=== PATIENT | female | born 1950 | race African-American/Black ===

== ENCOUNTER 2018-05-19 07:06 | Inpatient (IN) | payer MEDICARE, MEDICAID ==
[~2018-05-19] VITALS: Ht 157.5 cm; Wt 72.6 kg
--- NOTE | 2018-05-19 08:50 | NUR ---
NURSE NOTES: Received report from LEODAN Medina. Patient direct admit from [facility], came in for left side weakness and r/o stroke. No known allergies, AOx4.
--- NOTE | 2018-05-19 09:34 | NUR ---
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 VS at the time of arrival BP 151/84, HR 75, RR 18, O2 sat 98%, T 98.3, denies pain at this time. Patient able to move left hand, strength 2/5, able to move left leg 2/5. IV on left wrist 20G, Right FA 20G asymptomatic, patent, intact. Got reported that no medication given at [facility]. Bed in lowest position, side rails upx2, call light within reach. Will continue to monitor.
[2018-05-19 09:40] VITALS: BP 151/84
[2018-05-19 12:00] VITALS: BP 149/79
--- NOTE | 2018-05-19 12:00 | NUR ---
NURSE NOTES: Awaiting for patient to be in the system. Awaiting for Dr. Mcginnis for admission orders.
--- NOTE | 2018-05-19 14:00 | NUR ---
NURSE NOTES: Dr. Mcginnis at the station, admission orders noted, acknowledged, carried out. Will continue to monitor.
[2018-05-19] MEDS ORDERED: Nitroglycerin Subl 0.4mg tab SL PRN (14:15)
[2018-05-19] MEDS ORDERED: Miralax 17gm pkt ORAL PRN (14:15)
[2018-05-19] MEDS ORDERED: HydrALAZINE 50mg tab ORAL PRN (14:15)
--- NOTE | 2018-05-19 14:22 | History & Physical ---
History and Physical History & Physicial Liang Mcginnis MD May 19, 2018 14:22
[2018-05-19] MEDS ORDERED: Metoprolol 25mg tab ORAL SCH (14:30)
[2018-05-19] MEDS: Aspirin EC 81mg tab ORAL SCH (15:17)
--- NOTE | 2018-05-19 17:40 | Cardiology Progress Note ---
Assessment/Plan Assessment/Plan The patient is seen and examined, full consult note will be dictated shortly. Objective Last 24 Hour Vital Signs Date Time Temp Pulse Resp B/P (MAP) Pulse Ox O2 Delivery O2 Flow Rate FiO2 05/19/18 15:18 80 149/80 05/19/18 12:33 Room Air 05/19/18 12:00 98.1 82 18 149/79 (102) 97 05/19/18 09:40 85 05/19/18 09:40 98.3 75 18 151/84 (106) 98 Laboratory Tests Test 05/19/18 14:28 Troponin I 0.040 ng/mL (0.000-0.056) Wang De León MD May 19, 2018 17:40
--- NOTE | 2018-05-19 18:00 | History and Physical Report ---
DATE OF ADMISSION: 05/19/2018 CHIEF COMPLAINT: Left-sided weakness. HISTORY OF PRESENT ILLNESS: This is a 67-year-old female, denies any past medical history, except history of tubal ligation, who has presented initially to [facility] ER complaining about weakness mostly in the left upper extremity and lower extremity that started around 5 p.m. She was trying to go to the bathroom and fell and she had to use her chair to try to get her balance. She was on the floor for 5 hours. Subsequently, EMS was called in and the patient was transferred to the [facility]. Shortly after initial evaluation in the ER, the patient was worked up for acute stroke. A CT stroke was done at the ER that showed the mild white matter ischemic disease, but no acute intracranial pathology was identified and mild aortic atherosclerosis. The patient had a CT of the brain showed that unsure of the true improvement. Subsequently, CT stroke was done of the brain with CTA of the brain and neck showed that the posterior foci is unremarkable. The suprasellar cistern is within normal limits. Supratentorially, there is no mass, lesion, or midline shift. There is no hydronephrosis, acute intra intracranial hemorrhage, or extra axial air-fluid collection. Area of the white matter ischemic disease are suggested. CT angio of the brain also confirmed the mild white matter ischemic changes, but no acute intracranial pathology was identified. Mild aortic atherosclerosis identified. Subsequently, the patient was transferred to the [facility] for further evaluation and workup. The patient was admitted to the monitored unit for acute stroke with left-sided weakness. PAST MEDICAL HISTORY/PAST SURGICAL HISTORY: Significant for tubal ligation. MEDICATIONS AT HOME: None. ALLERGIES: No known drug allergies. SOCIAL HISTORY: The patient has smoked half a pack of cigarettes for 40 years pack smoker. Denies any alcohol or substance abuse. She is a caregiver. FAMILY HISTORY: Sister has a breast cancer and CVA at age of 70 and father has a history of lung cancer. REVIEW OF SYSTEMS: Denies any fever or chills. Complained about weakness and fatigue. Denies any cough or shortness of breath. Denies any loss of consciousness. Denies any headache. Denies any double vision. Denies any suicidal or homicidal ideation. PHYSICAL EXAMINATION: VITAL SIGNS: Upon arrival to [facility], blood pressure 170/110, pulse of 84, respirations 18, and temperature 98.2. GENERAL: The patient is awake, responsive, and in no acute. HEAD AND NECK: Pupils are reactive to light. Extraocular movements intact. Neck was supple. No JVD. LUNGS: Good air entry. No wheezing or rales. HEART: Reveals S1 and S2. Regular rhythm. No gallops. ABDOMEN: Soft, nondistended, and nontender. Positive bowel sounds. EXTREMITIES: No cyanosis, clubbing, or edema. NEUROLOGIC: SUPERVISOR OF OFFICIALS II through XII grossly intact. Motor is 5/5 in all extremities on the right side. On the left side is 3/5 on the upper as well as lower extremity. CRANIAL NERVE EXAMINATION: The gag is positive and the extra motor intact. No nystagmus. RECTAL/GENITOURINARY: Refused and deferred. PSYCHIATRIC: Mood and affect is intact. LABORATORY DATA: Laboratory from the [facility], WBC of 9.6, hemoglobin of 14, hematocrit 45, and platelets is 318,000. Sodium 140, potassium 3.8, chloride 109, bicarbonate 24, BUN is 8, and creatinine is 0.83. GFR is 85. INR is 1.0. Troponin 0.04. CK is 171. Calcium is 9.2. level is less than 0.10. EKG was noted. Initial EKG at the [facility] was noted normal sinus rhythm, ventricular rate of 94, left atrial enlargement. No ST elevation or T-wave inversion was identified. Repeat EKG at the [facility], normal sinus rhythm, ventricular rate of 72, left atrial enlargement, rightward axis inverted T-wave in V5 and V6, as well as flattening of T-wave in leads 1 and aVF. ASSESSMENT: 1. Left-sided weakness, most likely secondary to acute CVA. 2. Mild elevation of troponin with abnormal EKG, possible acute coronary syndrome. 3. Chronic smoker. 4. . PLAN: Admit the patient to monitor unit. We will follow up with the echocardiogram, serial cardiac enzyme and EKG. Start the patient on aspirin as well as Lipitor. We will discuss the case with Dr. Cesar Ramirez from Neurology and Dr. Wang De León from Cardiology. Discussed with the family member, the patient, as well as daughter at the bedside extensively regarding plan of care. Code status, Full Code. DVT prophylaxis with heparin subcutaneous. Liang Mcginnis M.D. DR: DU JOB#: [id number] CC:
--- NOTE | 2018-05-19 18:41 | Consultation ---
History of Present Illness General Date patient seen: May 19, 2018 Time patient seen: 19:00 Chief Complaint: LUE weakness Referring physician: Dr. Liang Mcginnis Reason for Consultation: CVA from OSH Present Illness HPI This is a 67-year-old female, denies any past medical history, except history of tubal ligation, who has presented initially to [facility] ER complaining about weakness mostly in the left upper extremity and lower extremity that started around 5 p.m. She was trying to go to the bathroom and fell and she had to use her chair to try to get her balance. She was on the floor for 5 hours. EMS was called in and the patient was transferred to the [facility]. Shortly after initial evaluation in the ER, the patient was worked up for acute stroke. A CT BRAIN was done at the ER that showed the mild white matter ischemic disease, but no acute intracranial pathology was identified and mild aortic atherosclerosis. CT angio of the brain also confirmed the mild white matter ischemic changes, but no acute intracranial pathology was identified. Mild aortic atherosclerosis identified. Since then, the patient has been transferred to [facility] for further evaluation and workup. The patient was admitted to the monitored unit for acute stroke with left-sided weakness. She is alert and oriented at the time of our consultation today. She is reporting LUE weakness and complaining of some right leg pain. Allergies: Coded Allergies: NO KNOWN ALLERGIES (Verified Allergy, Unknown, 05/19/18) Patient History History Provided By: Patient Healthcare decision maker Rosy Matias Resuscitation status Full Code Advanced Directive on File Past Medical/Surgical History Past Medical/Surgical History: (1) Cigarette smoker Review of Systems Constitutional: Reports: weakness Musculoskeletal: Reports: muscle pain, other - Reporting right leg pain and swelling Skin: Reports: no symptoms Psychiatric: Reports: no symptoms Neurological: Reports: focal weakness - LUE 3/5 and LLE 4/5 with mild facial weakness that improves upon smile . 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, alert, oriented x 3, responsive, normal mood/affect, motor weakness - LUE 3/5, worst at proximal- mild 4/5 weakness of LLE - RLE/RUE 5/5 Musculoskeletal: normal muscle bulk Last 24 Hour Vital Signs Date Time Temp Pulse Resp B/P (MAP) Pulse Ox O2 Delivery O2 Flow Rate FiO2 05/19/18 15:18 80 149/80 05/19/18 12:33 Room Air 05/19/18 12:00 98.1 82 18 149/79 (102) 97 05/19/18 09:40 85 05/19/18 09:40 98.3 75 18 151/84 (106) 98 Laboratory Tests Test 05/19/18 14:28 Troponin I 0.040 ng/mL (0.000-0.056) Height (Feet): 5 Height (Inches): 2.00 Weight (Pounds): 160 Medications Current Medications Medications (Trade) Dose Ordered Sig/Bryan Route PRN Reason Start Time Stop Time Status Last Admin Dose Admin Acetaminophen (Tylenol) 650 mg Q4H PRN ORAL Mild Pain (Pain Scale 1-3) 05/19/18 14:15 06/18/18 14:14 Amlodipine Besylate (Norvasc) 2.5 mg DAILY ORAL 05/19/18 18:00 06/18/18 17:59 Aspirin (Ecotrin) 81 mg DAILY ORAL 05/19/18 14:30 06/18/18 14:29 05/19/18 15:17 Atorvastatin Calcium (Lipitor) 80 mg BEDTIME ORAL 05/19/18 21:00 06/18/18 20:59 Dextrose (Dextrose 50%) 25 ml Q30M PRN IV Hypoglycemia 05/19/18 14:15 06/18/18 14:14 Dextrose (Dextrose 50%) 50 ml Q30M PRN IV Hypoglycemia 05/19/18 14:15 06/18/18 14:14 Docusate Sodium (Colace) 100 mg EVERY 12 HOURS ORAL 05/19/18 21:00 06/18/18 20:59 Heparin Sodium (Porcine) (Heparin 5000 units/ml) 5,000 units EVERY 12 HOURS SUBQ 05/19/18 21:00 06/18/18 20:59 UNV Hydralazine HCl (Apresoline) 50 mg Q6H PRN ORAL SBP > 160 05/19/18 14:15 06/18/18 14:14 Magnesium Hydroxide (Mom) 30 ml HSPRN PRN ORAL Constipation 05/19/18 21:00 06/18/18 20:59 Metoprolol Tartrate (Lopressor) 50 mg Q12HR ORAL 05/19/18 21:00 06/18/18 20:59 Nitroglycerin (Ntg) 0.4 mg Q5M X 3 DOSES PRN SL Prn Chest Pain 05/19/18 14:15 06/18/18 14:14 Ondansetron HCl (Zofran) 4 mg Q6H PRN IVP Nausea & Vomiting 05/19/18 14:15 06/18/18 14:14 Polyethylene Glycol (Miralax) 17 gm HSPRN PRN ORAL Constipation 05/19/18 14:15 06/18/18 14:14 Assessment/Plan Problem List: (1) CVA (cerebral vascular accident) Assessment & Plan: Asa 81mg Atorvastatin 80mg SCDs PT/OT/ ST evals MRI Brain Pending Echo normal at OSH Lipids panel HgBA1c ICD Codes: I63.9 - Cerebral infarction, unspecified SNOMED: 832721277 Qualifiers: (2) UTI (urinary tract infection) Assessment & Plan: UA Positive - Treat with abx as appropriate Maintain normothermia Avoid sexton catheterization ICD Codes: N39.0 - Urinary tract infection, site not specified SNOMED: 93322875 Qualifiers: (3) Left arm weakness Assessment & Plan: Most significant residual deficit. MRI Brain w/o contrast pending ICD Codes: R29.898 - Other symptoms and signs involving the musculoskeletal system SNOMED: 393550034 (4) Weakness on left side of face Assessment & Plan: ST Swallow Eval recommended No coughing or choking reported while eating at this time ICD Codes: R29.810 - Facial weakness SNOMED: 525855624 (5) Cigarette smoker Assessment & Plan: Counseling regarding smoking and risk of heart attack, stroke and lung cancer discussed. ICD Codes: F17.210 - Nicotine dependence, cigarettes, uncomplicated SNOMED: 06525918 (6) Right calf pain Assessment & Plan: Right Venous Doppler ordered to rule out DVT ICD Codes: M79.661 - Pain in right lower leg SNOMED: 832822716 Status: Lianna Millan N.P. May 19, 2018 18:41
[2018-05-19 20:00] VITALS: BP 116/71
--- NOTE | 2018-05-19 20:00 | NUR ---
NURSE NOTES: Received report from LEODAN Ocasio. Pt is awake and resting in bed. In no acute distress. IV line intact and patent. Bed in lowest position, call light within reach. Will continue plan of care.
--- NOTE | 2018-05-19 20:00 | Consultation ---
DATE OF CONSULTATION: 05/19/2018 CARDIOLOGY CONSULTATION CONSULTING PHYSICIAN: Wang De León M.D. REFERRING PHYSICIAN: Liang Mcginnis M.D. REASON FOR CONSULTATION: Management of elevation of troponin I level in the patient suspicious for acute stroke. HISTORY OF PRESENT ILLNESS: The patient is a very unfortunate 67-year-old female, who was initially admitted to [facility] with a chief complaint of weakness in the left arm and the left leg. This happened at 5 p.m. of 05/18/2018. The patient was trying to go to the bathroom and fell. She had to use a chair to keep her balance. Then, she was struck on the floor for about 5 hours. EMS was then called and stated that the patient seemed to have left-sided weakness as well. Initial blood pressure in the emergency department of [facility], blood pressure 170/110 mmHg and heart rate was 84. The patient's 12-lead electrocardiogram showed sinus rhythm with no evidence of ischemia. Chest x-ray showed no acute cardiopulmonary disease. CT of head showed no evidence of acute mass, ICH, or midline shift. CT angiography of the brain showed mild white matter ischemic disease but no acute intracranial pathology and mild aortic atherosclerosis. The patient's laboratory finding was significant for slight elevation of troponin I level at 0.04. The patient was then transferred to this facility for continuation of management and workup of acute stroke. PAST MEDICAL HISTORY: None. MEDICATION: Does not take any medication. ALLERGIES: No known drug allergies. SOCIAL HISTORY: Smokes about half a pack a day for more than 40 years. No alcohol or illicit drug use. FAMILY HISTORY: Sister with breast cancer and CVA in 70s and father with lung cancer. No premature coronary artery disease in the first-degree relatives. REVIEW OF SYSTEMS: HEENT: Denies any headache, diplopia, or blurred vision. CONSTITUTIONAL: Complains of fatigue. Denies any fever, chills, or night sweats. CARDIOVASCULAR: Denies any chest pain, shortness of breath, PND, orthopnea, or leg swelling. PULMONARY: Denies any cough, hemoptysis, or wheezing. GASTROINTESTINAL: Denies any nausea, vomiting, diarrhea, constipation, abdominal pain, or GI bleed. GENITOURINARY: Denies any hematuria, dysuria, or incontinence. NEUROLOGY: Complains of weakness in the left side of the body including left arm and left leg. PHYSICAL EXAMINATION: VITAL SIGNS: At the time of arrival to this facility, blood pressure was 151/84, heart rate of 85, respirations 18, temperature 98.3 degrees Fahrenheit, and O2 saturation of 98% on room air. GENERAL: This is a very pleasant 67-year-old female, in no apparent respiratory distress. Alert and oriented x4. HEENT: Atraumatic and normocephalic. Anicteric. Pupils are equal, round, and reactive to light and accommodation. Extraocular muscles intact. NECK: JVP less than 5 cm. No carotid bruit. Carotid upstrokes 2+ bilaterally. CVS: Normal S1, S2. Regular rate and rhythm. No murmurs, gallops, or rubs. PMI is at fourth intercostal space in the midclavicular line. LUNGS: Clear to auscultation bilaterally. ABDOMEN: Soft, nontender, and nondistended. No hepatosplenomegaly. Positive bowel sounds. EXTREMITIES: No evidence of edema, clubbing, or cyanosis. LABORATORY FINDINGS: Sodium was 140, potassium is 3.8, chloride 109, bicarbonate 24, BUN of 8, and creatinine of 0.83. Glucose 132. Calcium is 9.2. Troponin I first one is 0.04 and second troponin was 0.04. WBC was 9.6, hemoglobin 14.5, hematocrit of 45.7, and platelet count is 318,000. ASSESSMENT AND PLAN: The patient is a very unfortunate 67-year-old lady, who is seen in Cardiology consultation. 1. Slight elevation of troponin I level based on [facility]. Range considered to be slightly elevated. However, repeat of that troponin was the same value of 0.04, is within normal limits for [facility]. The patient is however denying any chest pain. Troponin I elevation could also be seen in the acute stroke as well. The patient will be considered aspirin as well as high intensity statins. Both medication have been initiated. The patient also has elevated blood pressure for which she is currently receiving metoprolol and hydralazine. We will continue managing the patient's hemodynamics. We will obtain 2D echocardiography for assessment of wall motion and receiving LVEF. 2. Accelerated hypertension. Agree with combination of hydralazine and metoprolol and have to put the patient on clonidine as needed. We are adding a calcium channel yahir for goal of 120/80 mmHg. I would like to thank, Dr. Mcginnis, for allowing me to participate in the care of this patient. Wang De León M.D. DR: JORJE JOB#: [id number] CC:
--- NOTE | 2018-05-19 20:16 | NUR ---
HAND-OFF: Report given to LEODAN Randle.
[2018-05-19] MEDS: Atorvastatin 80mg tab ORAL SCH (20:45)
[2018-05-19] MEDS: Docusate 100mg cap ORAL SCH (20:45)
[2018-05-19] MEDS: Metoprolol Tartrate 50mg tab ORAL SCH (20:46)
[2018-05-19] MEDS ORDERED: Milk of Magnesia 30ml Ud ORAL PRN (21:00)
[2018-05-20] VITALS: BP 116/69
[2018-05-20 04:00] VITALS: BP 109/63
[2018-05-20 06:56] LABS: HEMATOCRIT 43.8 % (37.0-47.0); HEMOGLOBIN 13.9 G/DL (12.0-16.0); MEAN CORPUSCULAR VOLUME 84 FL (80-99); MONOCYTES % (AUTO) 5.7 % (1.0-10.0); NEUTROPHILS % (AUTO) 54.3 % (45.0-75.0); PLATELET COUNT 306 K/UL (150-450); RED BLOOD COUNT 5.21 M/UL (4.20-5.40); RED CELL DISTRIBUTION WIDTH 13.1 % (11.6-14.8); WHITE BLOOD COUNT 6.2 K/UL (4.8-10.8)
[2018-05-20 07:18] LABS: ALANINE AMINOTRANSFERASE 27 U/L (12-78); ALBUMIN 3.3 G/DL (3.4-5.0); ALBUMIN/GLOBULIN RATIO 0.9 (1.0-2.7); ALKALINE PHOSPHATASE 76 U/L (46-116); ANION GAP 9 mmol/L (5-15); ASPARTATE AMINO TRANSFERASE 18 U/L (15-37); BILIRUBIN,TOTAL 0.5 MG/DL (0.2-1.0); BLOOD UREA NITROGEN 20 mg/dL (7-18); CARBON DIOXIDE 26 MMOL/L (21-32); CHLORIDE 106 MMOL/L (98-107); CHOLESTEROL 132 MG/DL (< 200); CREATININE 1.1 MG/DL (0.55-1.30); PHOSPHORUS 4.4 MG/DL (2.5-4.9); POTASSIUM 3.9 MMOL/L (3.5-5.1); SODIUM 141 MMOL/L (136-145)
--- NOTE | 2018-05-20 07:20 | NUR ---
HAND-OFF: Report given to LEODAN Ocasio.
--- NOTE | 2018-05-20 07:25 | NUR ---
NURSE NOTES: Received report from LEODAN Randle. Patient in bed resting, no active s/s cardiac, respiratory distress noticed at this time, denies pain at this time. Patient on room air, SR with 64. Endorsed need of Urine collection, MRI brain without contrast scheduled today. IV on left wrist 20G, right FA 20G, asymptomatic, patent, intact. Bed in lowest position, side rails upx2, call light within reach. Will continue to monitor.
[2018-05-20 08:00] VITALS: BP 114/63
[2018-05-20] MEDS: Metoprolol Tartrate 50mg tab ORAL SCH ×2 (08:37→20:38)
[2018-05-20] MEDS: Aspirin EC 81mg tab ORAL SCH (08:37)
[2018-05-20] MEDS: Docusate 100mg cap ORAL SCH ×2 (08:37→20:37)
[2018-05-20] MEDS: Heparin 5000 units/ml inj SUBQ SCH ×2 (08:38→20:39)
[2018-05-20 10:21] LABS: APPEARANCE,URINE CLEAR; BILIRUBIN, URINE NEGATIVE (NEGATIVE); GLUCOSE, URINE (UA) NEGATIVE (NEGATIVE); KETONES,URINE NEGATIVE (NEGATIVE); LEUKOCYTE ESTERASE ,URINE 2+ (NEGATIVE); NITRITE,URINE NEGATIVE (NEGATIVE); PH,URINE 5 (4.5-8.0); PROTEIN,URINE 1+ (NEGATIVE); UROBILINOGEN,URINE NORMAL MG/DL (0.0-1.0)
[2018-05-20 10:23] LABS: COLOR,URINE YELLOW
[2018-05-20 12:00] VITALS: BP 117/66
--- NOTE | 2018-05-20 15:52 | Neurology Progress Note ---
Interim History Interim History Complaints: Acute CVA Events: None, feeling a little better with improving left nancy Review of Systems All Systems: reviewed and negative except above Objective Physical Exam Last Vital Signs Date Time Temp Pulse Resp B/P (MAP) Pulse Ox O2 Delivery O2 Flow Rate FiO2 05/20/18 12:00 97.3 59 21 117/66 (83) 96 05/20/18 09:00 Room Air Laboratory Tests Test 05/20/18 05:25 05/20/18 10:00 White Blood Count 6.2 K/UL (4.8-10.8) Red Blood Count 5.21 M/UL (4.20-5.40) Hemoglobin 13.9 G/DL (12.0-16.0) Hematocrit 43.8 % (37.0-47.0) Mean Corpuscular Volume 84 FL (80-99) Mean Corpuscular Hemoglobin 26.6 PG (27.0-31.0) L Mean Corpuscular Hemoglobin Concent 31.6 G/DL (32.0-36.0) L Red Cell Distribution Width 13.1 % (11.6-14.8) Platelet Count 306 K/UL (150-450) Mean Platelet Volume 6.6 FL (6.5-10.1) Neutrophils (%) (Auto) 54.3 % (45.0-75.0) Lymphocytes (%) (Auto) 37.0 % (20.0-45.0) Monocytes (%) (Auto) 5.7 % (1.0-10.0) Eosinophils (%) (Auto) 2.0 % (0.0-3.0) Basophils (%) (Auto) 1.0 % (0.0-2.0) Prothrombin Time 10.6 SEC (9.30-11.50) Prothromb Time International Ratio 1.0 (0.9-1.1) Activated Partial Thromboplast Time 27 SEC (23-33) Sodium Level 141 MMOL/L (136-145) Potassium Level 3.9 MMOL/L (3.5-5.1) Chloride Level 106 MMOL/L (98-107) Carbon Dioxide Level 26 MMOL/L (21-32) Anion Gap 9 mmol/L (5-15) Blood Urea Nitrogen 20 mg/dL (7-18) H Creatinine 1.1 MG/DL (0.55-1.30) Estimat Glomerular Filtration Rate > 60 mL/min (>60) Glucose Level 114 MG/DL (74-106) H Calcium Level 9.0 MG/DL (8.5-10.1) Phosphorus Level 4.4 MG/DL (2.5-4.9) Magnesium Level 2.3 MG/DL (1.8-2.4) Total Bilirubin 0.5 MG/DL (0.2-1.0) Aspartate Amino Transf (AST/SGOT) 18 U/L (15-37) Alanine Aminotransferase (ALT/SGPT) 27 U/L (12-78) Alkaline Phosphatase 76 U/L (46-116) Troponin I 0.016 ng/mL (0.000-0.056) Total Protein 7.0 G/DL (6.4-8.2) Albumin 3.3 G/DL (3.4-5.0) L Globulin 3.7 g/dL Albumin/Globulin Ratio 0.9 (1.0-2.7) L Cholesterol Level 132 MG/DL (< 200) Thyroid Stimulating Hormone (TSH) 1.193 uiU/mL (0.358-3.740) Urine Color Yellow Urine Appearance Clear Urine pH 5 (4.5-8.0) Urine Specific [place] 1.025 (1.005-1.035) Urine Protein 1+ (NEGATIVE) H Urine Glucose (UA) Negative (NEGATIVE) Urine Ketones Negative (NEGATIVE) Urine Blood Negative (NEGATIVE) Urine Nitrite Negative (NEGATIVE) Urine Bilirubin Negative (NEGATIVE) Urine Urobilinogen Normal MG/DL (0.0-1.0) Urine Leukocyte Esterase 2+ (NEGATIVE) H Urine RBC 0-2 /HPF (0 - 2) Urine WBC 5-10 /HPF (0 - 2) H Urine Squamous Epithelial Cells Many /LPF (NONE/OCC) H Urine Bacteria Few /HPF (NONE) General: well developed, well nourished Head: normocophalic Neck: no rigidity EENT: benign Neurologic Exam Mental Status: awake, alert, oriented x4 Speech: normal speech, other - Some mild dysarthria- patient denies this is new. Language: normal language Cranial Nerve II: fundus normal, visual mercado, no papilledema Cranial Nerves III, IV, : PERRLA, EOMI Cranial Nerve V: normal facial sensations Cranial Nerve VII: other - Some mild lower facial asymmetry Cranial Nerve VIII: normal hearing Cranial Nerve IX: normal palate elevation Cranial Nerve X: no voice hoarseness Cranial Nerve XI: SCM symmetric Cranial Nerve XII: tongue midline Motor System: normal muscle tone, no involuntary movement, other - LUE 3/5 Proximal worse than distal strength - LLE4/5 Sensory: normal pinprick, normal light touch Coordination: normal finger to nose bilaterally, normal heel to farris bilaterally Deep Tendon Reflexes: 1+ bicep (L), 1+ tricep (L), 1+ brachioradialis (L), 1+ knee (L), 1+ ankle (L); 2+ bicep (R), 2+ tricep (R), 2+ brachioradialis (R), 2+ knee (R), 2+ ankle (R) Reflexes: flexor plantar (L), flexor plantar (R); extensor plantar (L), extensor plantar (R) Gait: other - Deferred at this time. Impression/Recommendations Problems: (1) Cigarette smoker Assessment & Plan: Counseling regarding smoking and risk of heart attack, stroke and lung cancer discussed. (2) CVA (cerebral vascular accident) Assessment & Plan: Asa 81mg Atorvastatin 80mg SCDs PT/OT/ ST evals MRI Brain Pending Echo normal at OSH Lipids panel completed, elevated HgBA1c completed , elevate (3) UTI (urinary tract infection) Assessment & Plan: Abx as per primary team (4) Hyperlipidemia Assessment & Plan: Atorvastatin 80mg QD already ordered F/U with PCP outpatient (5) Left arm weakness Assessment & Plan: Somewhat improved today (6) Weakness on left side of face Assessment & Plan: Improved- no problems eating/chewing/ swallowing food/ liquids Formal swallow pending but RN bedside swallow passed (7) Elevated hemoglobin A1c Assessment & Plan: Maintain normoglycemia with ISS Increase current regimen of Januvia if necessary Status: doing well, stable Lianna Naqvi N.P. May 20, 2018 15:52
[2018-05-20 16:00] VITALS: BP 123/69
[2018-05-20] MEDS ORDERED: Gadavist 7.5mMol/7.5ml vial IV PRN (16:00)
[2018-05-20 17:13] LABS: CHOLESTEROL 131 MG/DL (< 200); HDL CHOLESTEROL 25 MG/DL (40-60); TRIGLYCERIDES 179 MG/DL (30-150)
--- NOTE | 2018-05-20 19:31 | NUR ---
NURSE NOTES: Report received from Miladis Mendes RN. Pt is resting in bed in stable condition. Pt is awake, alert, and oriented x4. Pt is on room air and breathing is even and unlabored. No acute distress noted. IV sites are L FA #20g and R FA #20g and both sites are asymptomatic, patent, and intact. Bed is placed in lowest position with brake engaged, side rails up x2, and bed alarm on. Call light and side table placed within reach.
--- NOTE | 2018-05-20 19:31 | NUR ---
HAND-OFF: Report given to LEODAN Choi.
[2018-05-20 20:00] VITALS: BP 121/67
[2018-05-20] MEDS: Atorvastatin 80mg tab ORAL SCH (20:37)
--- NOTE | 2018-05-20 22:38 | Internal Med Progress Note ---
Subjective Physician Name Liang Mcginnis Attending Physician Liang Mcginnis MD Current Medications Medications (Trade) Dose Ordered Sig/Bryan Route PRN Reason Start Time Stop Time Status Last Admin Dose Admin Acetaminophen (Tylenol) 650 mg Q4H PRN ORAL Mild Pain (Pain Scale 1-3) 05/19/18 14:15 06/18/18 14:14 05/20/18 16:19 Amlodipine Besylate (Norvasc) 2.5 mg DAILY ORAL 05/19/18 18:00 06/18/18 17:59 05/20/18 08:39 Aspirin (Ecotrin) 81 mg DAILY ORAL 05/19/18 14:30 06/18/18 14:29 05/20/18 08:37 Atorvastatin Calcium (Lipitor) 80 mg BEDTIME ORAL 05/19/18 21:00 06/18/18 20:59 05/20/18 20:37 Dextrose (Dextrose 50%) 25 ml Q30M PRN IV Hypoglycemia 05/19/18 14:15 06/18/18 14:14 Dextrose (Dextrose 50%) 50 ml Q30M PRN IV Hypoglycemia 05/19/18 14:15 06/18/18 14:14 Docusate Sodium (Colace) 100 mg EVERY 12 HOURS ORAL 05/19/18 21:00 06/18/18 20:59 05/20/18 20:37 Gadobutrol (Gadavist) 7.5 mmol NOW PRN IV Radiology Procedure 05/20/18 16:00 05/24/18 15:57 Heparin Sodium (Porcine) (Heparin 5000 units/ml) 5,000 units EVERY 12 HOURS SUBQ 05/20/18 09:00 06/19/18 08:59 05/20/18 20:39 Hydralazine HCl (Apresoline) 50 mg Q6H PRN ORAL SBP > 160 05/19/18 14:15 06/18/18 14:14 Magnesium Hydroxide (Mom) 30 ml HSPRN PRN ORAL Constipation 05/19/18 21:00 06/18/18 20:59 Metoprolol Tartrate (Lopressor) 50 mg Q12HR ORAL 05/19/18 21:00 06/18/18 20:59 05/20/18 20:38 Nitroglycerin (Ntg) 0.4 mg Q5M X 3 DOSES PRN SL Prn Chest Pain 05/19/18 14:15 06/18/18 14:14 Ondansetron HCl (Zofran) 4 mg Q6H PRN IVP Nausea & Vomiting 05/19/18 14:15 06/18/18 14:14 Polyethylene Glycol (Miralax) 17 gm HSPRN PRN ORAL Constipation 05/19/18 14:15 06/18/18 14:14 Allergies: Coded Allergies: NO KNOWN ALLERGIES (Verified Allergy, Unknown, 05/19/18) Subjective awake, alert, responsive, NAD, Feeling "better", less Left side weakness Objective Last Vital Signs Date Time Temp Pulse Resp B/P (MAP) Pulse Ox O2 Delivery O2 Flow Rate FiO2 05/20/18 20:38 66 121/67 05/20/18 20:00 98.9 16 96 05/20/18 09:00 Room Air Laboratory Tests Test 05/20/18 05:25 05/20/18 10:00 05/20/18 15:57 White Blood Count 6.2 K/UL (4.8-10.8) Red Blood Count 5.21 M/UL (4.20-5.40) Hemoglobin 13.9 G/DL (12.0-16.0) Hematocrit 43.8 % (37.0-47.0) Mean Corpuscular Volume 84 FL (80-99) Mean Corpuscular Hemoglobin 26.6 PG (27.0-31.0) L Mean Corpuscular Hemoglobin Concent 31.6 G/DL (32.0-36.0) L Red Cell Distribution Width 13.1 % (11.6-14.8) Platelet Count 306 K/UL (150-450) Mean Platelet Volume 6.6 FL (6.5-10.1) Neutrophils (%) (Auto) 54.3 % (45.0-75.0) Lymphocytes (%) (Auto) 37.0 % (20.0-45.0) Monocytes (%) (Auto) 5.7 % (1.0-10.0) Eosinophils (%) (Auto) 2.0 % (0.0-3.0) Basophils (%) (Auto) 1.0 % (0.0-2.0) Prothrombin Time 10.6 SEC (9.30-11.50) Prothromb Time International Ratio 1.0 (0.9-1.1) Activated Partial Thromboplast Time 27 SEC (23-33) Sodium Level 141 MMOL/L (136-145) Potassium Level 3.9 MMOL/L (3.5-5.1) Chloride Level 106 MMOL/L (98-107) Carbon Dioxide Level 26 MMOL/L (21-32) Anion Gap 9 mmol/L (5-15) Blood Urea Nitrogen 20 mg/dL (7-18) H Creatinine 1.1 MG/DL (0.55-1.30) Estimat Glomerular Filtration Rate > 60 mL/min (>60) Glucose Level 114 MG/DL (74-106) H Calcium Level 9.0 MG/DL (8.5-10.1) Phosphorus Level 4.4 MG/DL (2.5-4.9) Magnesium Level 2.3 MG/DL (1.8-2.4) Total Bilirubin 0.5 MG/DL (0.2-1.0) Aspartate Amino Transf (AST/SGOT) 18 U/L (15-37) Alanine Aminotransferase (ALT/SGPT) 27 U/L (12-78) Alkaline Phosphatase 76 U/L (46-116) Troponin I 0.016 ng/mL (0.000-0.056) Total Protein 7.0 G/DL (6.4-8.2) Albumin 3.3 G/DL (3.4-5.0) L Globulin 3.7 g/dL Albumin/Globulin Ratio 0.9 (1.0-2.7) L Cholesterol Level 132 MG/DL (< 200) 131 MG/DL (< 200) Thyroid Stimulating Hormone (TSH) 1.193 uiU/mL (0.358-3.740) Urine Color Yellow Urine Appearance Clear Urine pH 5 (4.5-8.0) Urine Specific [place] 1.025 (1.005-1.035) Urine Protein 1+ (NEGATIVE) H Urine Glucose (UA) Negative (NEGATIVE) Urine Ketones Negative (NEGATIVE) Urine Blood Negative (NEGATIVE) Urine Nitrite Negative (NEGATIVE) Urine Bilirubin Negative (NEGATIVE) Urine Urobilinogen Normal MG/DL (0.0-1.0) Urine Leukocyte Esterase 2+ (NEGATIVE) H Urine RBC 0-2 /HPF (0 - 2) Urine WBC 5-10 /HPF (0 - 2) H Urine Squamous Epithelial Cells Many /LPF (NONE/OCC) H Urine Bacteria Few /HPF (NONE) Hemoglobin A1c 6.5 % (4.3-6.0) H Triglycerides Level 179 MG/DL (30-150) H LDL Cholesterol 79 mg/dL (<100) HDL Cholesterol 25 MG/DL (40-60) L Cholesterol/HDL Ratio 5.2 (3.3-4.4) H Intake and Output 05/19/18 05/20/18 19:00 07:00 Intake Total 240 ml 300 ml Balance 240 ml 300 ml Intake Oral 240 ml 300 ml # Voids 2 Objective GENERAL: awake, responsive, and in no acute. HEAD AND NECK: Pupils are reactive to light. Extraocular movements intact. Neck was supple. No JVD. LUNGS: Good air entry. No wheezing or rales. HEART: Reveals S1 and S2. Regular rhythm. No Murmur or gallops. ABDOMEN: Soft, nondistended, and nontender. Positive bowel sounds. EXTREMITIES: No cyanosis, clubbing, or edema. NEUROLOGIC: TALENT ACQUISITION ADMINISTRATOR II through XII grossly intact. Motor is 5/5 in Right side extremities. eft side is 4/5 on the upper as well as lower extremity. Assessment/Plan Assessment/Plan ASSESSMENT: 1. Left-sided weakness, most likely secondary to acute CVA. 2. Mild elevation of troponin with abnormal EKG, possible acute coronary syndrome. 3. Chronic smoker. PLAN: In monitor unit. F/U echocardiogram, Dr. Cesar Ramirez from Neurology and Dr. Wang De León from Cardiology. Code status, Full Code. DVT prophylaxis with heparin subcutaneous. MRI of Brain PT Mobility Liang Mcginnis M.D. Liang Mcginnis MD May 20, 2018 22:38
[2018-05-21] VITALS: BP 108/66
--- NOTE | 2018-05-21 00:17 | Neurology Progress Note ---
Interim History Interim History Complaints: Acute CVA Events: Stable for D/C Review of Systems All Systems: reviewed and negative except above Objective Physical Exam Last Vital Signs Date Time Temp Pulse Resp B/P (MAP) Pulse Ox O2 Delivery O2 Flow Rate FiO2 05/20/18 21:00 Room Air 05/20/18 20:38 66 121/67 05/20/18 20:00 98.9 16 96 Laboratory Tests Test 05/20/18 05:25 05/20/18 10:00 05/20/18 15:57 White Blood Count 6.2 K/UL (4.8-10.8) Red Blood Count 5.21 M/UL (4.20-5.40) Hemoglobin 13.9 G/DL (12.0-16.0) Hematocrit 43.8 % (37.0-47.0) Mean Corpuscular Volume 84 FL (80-99) Mean Corpuscular Hemoglobin 26.6 PG (27.0-31.0) L Mean Corpuscular Hemoglobin Concent 31.6 G/DL (32.0-36.0) L Red Cell Distribution Width 13.1 % (11.6-14.8) Platelet Count 306 K/UL (150-450) Mean Platelet Volume 6.6 FL (6.5-10.1) Neutrophils (%) (Auto) 54.3 % (45.0-75.0) Lymphocytes (%) (Auto) 37.0 % (20.0-45.0) Monocytes (%) (Auto) 5.7 % (1.0-10.0) Eosinophils (%) (Auto) 2.0 % (0.0-3.0) Basophils (%) (Auto) 1.0 % (0.0-2.0) Prothrombin Time 10.6 SEC (9.30-11.50) Prothromb Time International Ratio 1.0 (0.9-1.1) Activated Partial Thromboplast Time 27 SEC (23-33) Sodium Level 141 MMOL/L (136-145) Potassium Level 3.9 MMOL/L (3.5-5.1) Chloride Level 106 MMOL/L (98-107) Carbon Dioxide Level 26 MMOL/L (21-32) Anion Gap 9 mmol/L (5-15) Blood Urea Nitrogen 20 mg/dL (7-18) H Creatinine 1.1 MG/DL (0.55-1.30) Estimat Glomerular Filtration Rate > 60 mL/min (>60) Glucose Level 114 MG/DL (74-106) H Calcium Level 9.0 MG/DL (8.5-10.1) Phosphorus Level 4.4 MG/DL (2.5-4.9) Magnesium Level 2.3 MG/DL (1.8-2.4) Total Bilirubin 0.5 MG/DL (0.2-1.0) Aspartate Amino Transf (AST/SGOT) 18 U/L (15-37) Alanine Aminotransferase (ALT/SGPT) 27 U/L (12-78) Alkaline Phosphatase 76 U/L (46-116) Troponin I 0.016 ng/mL (0.000-0.056) Total Protein 7.0 G/DL (6.4-8.2) Albumin 3.3 G/DL (3.4-5.0) L Globulin 3.7 g/dL Albumin/Globulin Ratio 0.9 (1.0-2.7) L Cholesterol Level 132 MG/DL (< 200) 131 MG/DL (< 200) Thyroid Stimulating Hormone (TSH) 1.193 uiU/mL (0.358-3.740) Urine Color Yellow Urine Appearance Clear Urine pH 5 (4.5-8.0) Urine Specific [place] 1.025 (1.005-1.035) Urine Protein 1+ (NEGATIVE) H Urine Glucose (UA) Negative (NEGATIVE) Urine Ketones Negative (NEGATIVE) Urine Blood Negative (NEGATIVE) Urine Nitrite Negative (NEGATIVE) Urine Bilirubin Negative (NEGATIVE) Urine Urobilinogen Normal MG/DL (0.0-1.0) Urine Leukocyte Esterase 2+ (NEGATIVE) H Urine RBC 0-2 /HPF (0 - 2) Urine WBC 5-10 /HPF (0 - 2) H Urine Squamous Epithelial Cells Many /LPF (NONE/OCC) H Urine Bacteria Few /HPF (NONE) Hemoglobin A1c 6.5 % (4.3-6.0) H Triglycerides Level 179 MG/DL (30-150) H LDL Cholesterol 79 mg/dL (<100) HDL Cholesterol 25 MG/DL (40-60) L Cholesterol/HDL Ratio 5.2 (3.3-4.4) H General: well developed, well nourished Head: normocophalic Neck: no rigidity EENT: benign Neurologic Exam Mental Status: awake, alert, oriented x4 Speech: normal speech, other - Some mild dysarthria- patient denies this is new. Language: normal language Cranial Nerve II: fundus normal, visual mercado, no papilledema Cranial Nerves III, IV, : PERRLA, EOMI Cranial Nerve V: normal facial sensations Cranial Nerve VII: other - Some mild lower facial asymmetry Cranial Nerve VIII: normal hearing Cranial Nerve IX: normal palate elevation Cranial Nerve X: no voice hoarseness Cranial Nerve XI: SCM symmetric Cranial Nerve XII: tongue midline Motor System: normal muscle tone, no involuntary movement, other - LUE 3/5 Proximal worse than distal strength - LLE4/5 Sensory: normal pinprick, normal light touch Coordination: normal finger to nose bilaterally, normal heel to farris bilaterally Deep Tendon Reflexes: 1+ bicep (L), 1+ tricep (L), 1+ brachioradialis (L), 1+ knee (L), 1+ ankle (L); 2+ bicep (R), 2+ tricep (R), 2+ brachioradialis (R), 2+ knee (R), 2+ ankle (R) Reflexes: flexor plantar (L), flexor plantar (R); extensor plantar (L), extensor plantar (R) Gait: other - Deferred at this time. Impression/Recommendations Problems: (1) Cigarette smoker Assessment & Plan: Counseling regarding smoking and risk of heart attack, stroke and lung cancer discussed. (2) CVA (cerebral vascular accident) Assessment & Plan: Asa 81mg Atorvastatin 80mg SCDs PT/OT/ ST evals MRI Brain Pending Echo normal at OSH Lipids panel completed, elevated HgBA1c completed , elevate (3) UTI (urinary tract infection) Assessment & Plan: Abx as per primary team (4) Hyperlipidemia Assessment & Plan: Atorvastatin 80mg QD already ordered F/U with PCP outpatient (5) Left arm weakness Assessment & Plan: Somewhat improved today (6) Weakness on left side of face Assessment & Plan: Improved- no problems eating/chewing/ swallowing food/ liquids Formal swallow pending but RN bedside swallow passed (7) Elevated hemoglobin A1c Assessment & Plan: Maintain normoglycemia with ISS Increase current regimen of Januvia if necessary Status: doing well, stable, progressing Recommendations Stable for D/C from a neurological perspective. Lianna Naqvi N.P. May 21, 2018 00:17
[2018-05-21 04:00] VITALS: BP 126/70
[2018-05-21 07:19] LABS: ALANINE AMINOTRANSFERASE 23 U/L (12-78); ALBUMIN 3.2 G/DL (3.4-5.0); ALBUMIN/GLOBULIN RATIO 0.9 (1.0-2.7); ALKALINE PHOSPHATASE 75 U/L (46-116); ANION GAP 9 mmol/L (5-15); ASPARTATE AMINO TRANSFERASE 16 U/L (15-37); BILIRUBIN,TOTAL 0.4 MG/DL (0.2-1.0); BLOOD UREA NITROGEN 17 mg/dL (7-18); CALCIUM 8.6 MG/DL (8.5-10.1); CARBON DIOXIDE 24 MMOL/L (21-32); CHLORIDE 108 MMOL/L (98-107); PHOSPHORUS 3.7 MG/DL (2.5-4.9); POTASSIUM 4.4 MMOL/L (3.5-5.1); SODIUM 141 MMOL/L (136-145)
--- NOTE | 2018-05-21 07:28 | NUR ---
HAND-OFF: Report given to Miladis Mendes RN. Pt is resting in bed in stable condition. No acute distress noted. Endorsed plan of care.
--- NOTE | 2018-05-21 07:28 | NUR ---
NURSE NOTES: Received report from LEODAN Choi. Patient in bed resting, no active s/s cardiac, respiratory distress noticed at this time, denies pain at this time. SR with HR 60, patient on room air, AOx4. IV site on left wrist 20G, right FA 20G, asymptomatic, patent, intact. Endorsed MRI w/wo contrast scheduled today 05/21/18. Bed in lowest position, side rails upx3, call light within reach. Will continue to monitor.
[2018-05-21 07:48] LABS: EOSINOPHILS % (AUTO) 2.6 % (0.0-3.0); HEMATOCRIT 45.3 % (37.0-47.0); HEMOGLOBIN 14.6 G/DL (12.0-16.0); LYMPHOCYTES % (AUTO) 33.2 % (20.0-45.0); MEAN CORPUSCULAR VOLUME 82 FL (80-99); MONOCYTES % (AUTO) 8.2 % (1.0-10.0); PLATELET COUNT 223 K/UL (150-450); RED BLOOD COUNT 5.51 M/UL (4.20-5.40); RED CELL DISTRIBUTION WIDTH 12.9 % (11.6-14.8); WHITE BLOOD COUNT 7.3 K/UL (4.8-10.8)
[2018-05-21 08:00] VITALS: BP 108/70
[2018-05-21] MEDS: Docusate 100mg cap ORAL SCH ×2 (08:34→20:45)
[2018-05-21] MEDS: Aspirin EC 81mg tab ORAL SCH (08:34)
[2018-05-21] MEDS: Heparin 5000 units/ml inj SUBQ SCH ×2 (08:39→20:46)
--- NOTE | 2018-05-21 08:43 | NUR ---
NURSE NOTES: Per vineet Marx for OFF TELE for MRI brain. Order entered, noted, carried out.
[2018-05-21] MEDS: Metoprolol Tartrate 50mg tab ORAL SCH ×2 (08:59→20:45)
--- NOTE | 2018-05-21 10:43 | NUR ---
MRI BRAIN W/WO COMPLETED.
--- NOTE | 2018-05-21 11:05 | Diagnostic Imaging Report ---
Indication: Left-sided weakness Technique: sagittal T1 fast spin echo, axial T1 and T2 FLAIR PROPELLER,, sagittal T2 FLAIR PROPELLER, axial T2 FS PROPELLER, T2* GRE, axial diffusion weighted images, post contrast axial and coronal T1 FLAIR PROPELLER images. ADC and exponential ADC maps generated Comparison: none Findings: . Area of restricted diffusion is seen in the right basal ganglia, extending from the posterior external capsule region and posterior lentiform cephalad into the nayak radiata and possibly involving the caudate body. No other diffusion abnormality demonstrated. This area does demonstrate increased T2 signal as well. No evidence of associated hemorrhage. No acute hemorrhage or edema elsewhere. No mass effect nor midline shift. No abnormal contrast enhancement. There is age-related enlargement of the ventricles and extra axial CSF spaces. There is periventricular deep white matter high T2 signal consistent with chronic microvascular ischemic change. The vascular flow voids are preserved. Old lacunar infarcts are seen in the right basal ganglia. Visualized orbits and sinuses are unremarkable. . Impression: Positive for acute right basal ganglia lacunar infarct Negative for acute intracranial bleed, mass effect, or contrast enhancing lesion Age-related volume loss, chronic microvascular ischemic changes, and old right basal ganglia lacunar infarcts also incidentally noted.. Patient's nurse notified of the findings at the time of interpretation
--- NOTE | 2018-05-21 11:23 | NUR ---
NURSE NOTES: Dr. Mcginnis made aware MRI brain taken and reported right acute basal ganglia infract. No order given at this time, will continue to follow up.
--- NOTE | 2018-05-21 11:32 | NUR ---
CASE MANAGEMENT:REVIEW 05/19/18 TRANSFERRED FROM [facility] ER 05/20/18 SI: LT SIDED WEAKNESS. LIKELY ACUTE CVA ELEVATED TROPONIN 97.3 60 21 123/69 99% ON RA BUN+20 GLUCOSE+114 IS: HEPARIN SQ Q12 LIPITOR PO QHS LOPRESSOR PO Q12 NORVASC PO QD ASA PO QD : TO TELEMETRY 05/21/18 SI: ACUTE RT GANGLIA LACUNAR INFARCT 98.8 59 20 108/70 94% ON RA GLUCOSE+126 IS: HEPARIN SQ Q12 LOPRESSOR PO Q12 NORVASC PO QD ASA PO QD : TELEMETRY STATUS PLAN: OT/PT/ST INTERQUAL CRITERIA MET
--- NOTE | 2018-05-21 11:41 | NUR ---
NURSE NOTES: Dr. Suazo at the nursing station, made aware of MRI result. No order given at this time.
[2018-05-21 12:00] VITALS: BP 127/71
[2018-05-21] MEDS ORDERED: Nitroglycerin Subl 0.4mg tab SL PRN (12:30)
--- NOTE | 2018-05-21 12:30 | NUR ---
SWALLOW/SPEECH THERAPY NOTE: REFERRED BY DR NAQVI, PRIMARY MD IS DR GARCIA FOR A SWALLOW EVALUATION (SEE FULL REPORT IN ST CARE ACTIVITY SECTION COMPLETED POST CHART REVIEW) DYSPHAGIA RISK FACTORS FOR THIS 67 Y.O. RIGHT HAND DOMINANT FEMALE: ACUTE RIGHT SUBCORTICAL BASAL GANGLIA LACUNAR INFARCTS HAS CODING SPECIALIST (ARM/LEG) FELL AT HOME 5 HOURS UNTIL SHE RECEIVED HELP. ALSO HAS OLD RIGHT BASAL GANGLIA INFARCTS ON MRI BRAIN SCAN. SEE CTA 05/19/18 FROM [facility] ABOUT ? ANEURYSM POST ASPECT OF CLINOID SEGMENT OF L INTRACRANIAL ICA BEST SEEN ON IMAGE 38 ON SERIES 610. WAS ORIENTED TIMES 3 AND HAD MILD SLURRING OF SPEECH ? BASELINE PER MEDICAL RECORD. H/O SMOKING 1/2 PPD 40 YEARS (?TOBACCO). 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 PATIENT IS FROM HOME AND THOUGHT SHE MIGHT OF HAD A STROKE BUT SHE STILL NEEDS TO SEE MD TO CONFIRM THIS (MRI RESULTS IN). PATIENT IS ALERT AND ABLE TO INTELLIGIBLY EXPRESS HER NEEDS WELL. SHE HAS AN UNDERBITE AND IS WEARING PARTIAL LOWER DENTURES, NO UPPER DENTITION NOR DENTURES. SHE WAS ON A REGULAR TEXTURE DIET AND THIN LIQUIDS AT HOME. CURRENTLY SHE IS ON A CARDIAC REGULAR TEXTURE DIET AND THIN LIQUIDS WITH GOOD INTAKE AND NO PROBLEM TAKING MEDS WHO PER RN. THE PATIENT DENIES SWALLOWING PROBLEMS BUT DID ADMIT THAT SHE HAS BEEN HAVING RIGHT LABIAL/ORAL SPILLAGE PRIOR TO COMING TO THE HOSPITAL (MRI BRAIN NOTED ACUTE AND OLD R SUBCORTCAL CVAS). PATIENT DENIES SENSORY CHANGES OF RIGHT SIDE OF LIPS. 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 RIGHT LABIAL WEAKNESS WITH POOR RIGHT-SIDED LIP CLOSURE WITH ORAL SPILLAGE USING CUP WITH SEQUENTIAL SIPS OF 3 OZ WATER (WAYNE SWALLOW PROTOCOL). NO OVERT S/S OF ASPIRATION AND FINISHED W/O PAUSING BUT HAS SILENT ASPIRATION RISK (DUE TO ACUTE RIGHT SUBCORTICAL CVA) GROSSLY FUNCTIONAL SWALLOW WITH PUREED TSP AND MASTICATED SOLID (1/2 CRACKER). GOOD INTAKE RECOMMENDATIONS: MODIFIED BARIUM SWALLOW STUDY TO FURTHER ASSESS MOSTLY PHARYNGEAL PHASE OF SWALLOW, DETERMINE SILENT ASPIRATION RISK, AND ATTEMPT TRIAL TX IF INDICATED (PT MAY REFUSE STUDY SHE DENIES SHE HAS SWALLOWING PROBLEMS AND FEELS THAT RIGHT LABIAL LEAKAGE PRESENT PRIOR TO ADMISSION). IF PO CONTINUES (PATIENT WANTS TO HAVE PO NOW BY MOUTH) FOR QUALITY OF LIFE PURPOSES, CONTINUE WITH CURRENT CARDIAC DIET AND THIN LIQUIDS USING POSTED ASPIRATION PRECAUTIONS AND SUPERVISION OF MEALS. PATIENT IS NOT RECEPTIVE TO HAVING MEAT CUT (SAYS SHE CAN USE BOTH HANDS INCLUDING WEAKER LEFT HAND TO CUT HER FOOD). EDUCATED/TRAINED PATIENT AND RN (LEILA) IN POSTED ASPIRATION PRECAUTIONS. CONTINUE WITH DYSPHAGIA MANAGEMENT AND TX (SEE REPORT) WITH MORE GOALS PENDING MOD BARIUM SWALLOW STUDY. CONSIDER SPEECH/LANG/COGNITIVE EVAL/TX GIVEN NEW R SUBCORTICAL CVA. LEFT MESSAGE WITH DR NAQVI AND DISCUSSED ABOVE WITH PATIENT AND RN (LEILA). Addendum: 05/21/18 at 1244 by CAROLINA VELAZQUEZ STAVE CUTTER per rn, she will speak with Amalia Naqvi NP about relaying MRI brain results to patient.
[2018-05-21] MEDS ORDERED: HydrALAZINE 50mg tab ORAL PRN (12:32)
[2018-05-21] MEDS ORDERED: Milk of Magnesia 30ml Ud ORAL PRN (12:32)
[2018-05-21] MEDS ORDERED: Miralax 17gm pkt ORAL PRN (12:33)
--- NOTE | 2018-05-21 12:38 | Consultation ---
History of Present Illness General Date patient seen: May 21, 2018 Referring physician: Dr. Liang Mcginnis Reason for Consultation: CVA from OSH Present Illness HPI 67-year-old female, without any past medical history, presented initially to [facility] ER complaining about weakness mostly in the left upper extremity and lower extremity. A CT stroke was done at the ER that showed the mild white matter ischemic disease, but no acute intracranial pathology was identified and mild aortic atherosclerosis. Subsequently, the patient was transferred to the [facility] for further evaluation and workup. The patient was admitted to the monitored unit for acute stroke with left-sided weakness. Allergies: Coded Allergies: NO KNOWN ALLERGIES (Verified Allergy, Unknown, 05/19/18) Medication History Scheduled Amlodipine Besylate (Norvasc), 2.5 MG ORAL DAILY Aspirin Ec* (Aspirin Ec*), 81 MG ORAL DAILY Atorvastatin (Lipitor), 80 MG ORAL BEDTIME Metoprolol Tartrate* (Metoprolol Tartrate*), 25 MG ORAL EVERY 12 HOURS Patient History Healthcare decision maker Rosy Matias Resuscitation status Full Code Advanced Directive on File Past Medical/Surgical History Past Medical/Surgical History: (1) Cigarette smoker Review of Systems All Other Systems: negative except mentioned in HPI Physical Exam General Appearance: WD/WN, no apparent distress Lines, tubes and drains: peripheral HEENT: normocephalic, atraumatic Neck: non-tender, normal alignment Respiratory/Chest: chest wall non-tender, lungs clear Breasts: no masses Cardiovascular/Chest: normal peripheral pulses Abdomen: normal bowel sounds, non tender Genitourinary/Rectal: normal genital exam Extremities: normal range of motion Last 24 Hour Vital Signs Date Time Temp Pulse Resp B/P (MAP) Pulse Ox O2 Delivery O2 Flow Rate FiO2 05/21/18 09:00 Room Air 05/21/18 08:59 59 108/70 05/21/18 08:59 59 108/70 05/21/18 08:00 98.8 59 20 108/70 (83) 94 05/21/18 08:00 56 05/21/18 04:00 98.8 63 20 126/70 (88) 95 05/21/18 04:00 59 05/21/18 00:00 59 05/21/18 00:00 99.0 63 18 108/66 (80) 100 05/20/18 21:00 Room Air 05/20/18 20:38 66 121/67 05/20/18 20:00 98.9 66 16 121/67 (85) 96 05/20/18 16:00 97.3 60 21 123/69 (87) 99 05/20/18 16:00 64 Intake and Output 05/20/18 05/21/18 18:59 06:59 Intake Total 300 ml 300 ml Balance 300 ml 300 ml Intake Oral 300 ml 300 ml # Voids 2 2 Laboratory Tests Test 05/20/18 15:57 05/21/18 06:20 05/21/18 09:45 Hemoglobin A1c 6.5 % (4.3-6.0) H Triglycerides Level 179 MG/DL (30-150) H Cholesterol Level 131 MG/DL (< 200) LDL Cholesterol 79 mg/dL (<100) HDL Cholesterol 25 MG/DL (40-60) L Cholesterol/HDL Ratio 5.2 (3.3-4.4) H White Blood Count 7.3 K/UL (4.8-10.8) Red Blood Count 5.51 M/UL (4.20-5.40) H Hemoglobin 14.6 G/DL (12.0-16.0) Hematocrit 45.3 % (37.0-47.0) Mean Corpuscular Volume 82 FL (80-99) Mean Corpuscular Hemoglobin 26.5 PG (27.0-31.0) L Mean Corpuscular Hemoglobin Concent 32.2 G/DL (32.0-36.0) Red Cell Distribution Width 12.9 % (11.6-14.8) Platelet Count 223 K/UL (150-450) Mean Platelet Volume 6.3 FL (6.5-10.1) L Neutrophils (%) (Auto) 55.0 % (45.0-75.0) Lymphocytes (%) (Auto) 33.2 % (20.0-45.0) Monocytes (%) (Auto) 8.2 % (1.0-10.0) Eosinophils (%) (Auto) 2.6 % (0.0-3.0) Basophils (%) (Auto) 1.0 % (0.0-2.0) Sodium Level 141 MMOL/L (136-145) Potassium Level 4.4 MMOL/L (3.5-5.1) Chloride Level 108 MMOL/L (98-107) H Carbon Dioxide Level 24 MMOL/L (21-32) Anion Gap 9 mmol/L (5-15) Blood Urea Nitrogen 17 mg/dL (7-18) Creatinine 1.0 MG/DL (0.55-1.30) Estimat Glomerular Filtration Rate > 60 mL/min (>60) Glucose Level 126 MG/DL (74-106) H Calcium Level 8.6 MG/DL (8.5-10.1) Phosphorus Level 3.7 MG/DL (2.5-4.9) Magnesium Level 2.2 MG/DL (1.8-2.4) Total Bilirubin 0.4 MG/DL (0.2-1.0) Aspartate Amino Transf (AST/SGOT) 16 U/L (15-37) Alanine Aminotransferase (ALT/SGPT) 23 U/L (12-78) Alkaline Phosphatase 75 U/L (46-116) C-Reactive Protein, Quantitative 0.7 mg/dL (0.00-0.90) Total Protein 6.9 G/DL (6.4-8.2) Albumin 3.2 G/DL (3.4-5.0) L Globulin 3.7 g/dL Albumin/Globulin Ratio 0.9 (1.0-2.7) L Erythrocyte Sedimentation Rate 8 MM/HR (0-30) Height (Feet): 5 Height (Inches): 2.00 Weight (Pounds): 160 Medications Current Medications Medications (Trade) Dose Ordered Sig/Bryan Route PRN Reason Start Time Stop Time Status Last Admin Dose Admin Acetaminophen (Tylenol) 650 mg Q4H PRN ORAL Mild Pain (Pain Scale 1-3) 05/21/18 12:31 06/20/18 12:30 Amlodipine Besylate (Norvasc) 2.5 mg DAILY ORAL 05/22/18 09:00 06/18/18 17:59 Aspirin (Ecotrin) 81 mg DAILY ORAL 05/22/18 09:00 06/18/18 14:29 Atorvastatin Calcium (Lipitor) 80 mg BEDTIME ORAL 05/21/18 21:00 06/18/18 20:59 Dextrose (Dextrose 50%) 25 ml Q30M PRN IV Hypoglycemia 05/21/18 12:45 06/18/18 14:14 Dextrose (Dextrose 50%) 50 ml Q30M PRN IV Hypoglycemia 05/21/18 12:45 06/18/18 14:14 Docusate Sodium (Colace) 100 mg EVERY 12 HOURS ORAL 05/21/18 21:00 06/18/18 20:59 Gadobutrol (Gadavist) 7.5 mmol NOW PRN IV Radiology Procedure 05/21/18 16:00 05/24/18 15:57 Heparin Sodium (Porcine) (Heparin 5000 units/ml) 5,000 units EVERY 12 HOURS SUBQ 05/21/18 21:00 06/19/18 08:59 Hydralazine HCl (Apresoline) 50 mg Q6H PRN ORAL SBP > 160 05/21/18 12:32 06/20/18 12:31 Magnesium Hydroxide (Mom) 30 ml HSPRN PRN ORAL Constipation 05/21/18 12:32 06/20/18 12:31 Metoprolol Tartrate (Lopressor) 50 mg Q12HR ORAL 05/21/18 21:00 06/18/18 20:59 Nitroglycerin (Ntg) 0.4 mg Q5M X 3 DOSES PRN SL Prn Chest Pain 05/21/18 12:30 06/18/18 14:14 Ondansetron HCl (Zofran) 4 mg Q6H PRN IVP Nausea & Vomiting 05/21/18 12:32 06/20/18 12:31 Polyethylene Glycol (Miralax) 17 gm HSPRN PRN ORAL Constipation 05/21/18 12:33 06/20/18 12:32 Assessment/Plan Problem List: (1) Acute encephalopathy ICD Codes: G93.40 - Encephalopathy, unspecified SNOMED: 15882757, 021307088 (2) CVA (cerebral vascular accident) ICD Codes: I63.9 - Cerebral infarction, unspecified SNOMED: 920803657 Qualifiers: (3) Left arm weakness ICD Codes: R29.898 - Other symptoms and signs involving the musculoskeletal system SNOMED: 646727166 Assessment/Plan Echo doppler of carotid artery monitor BP pt/ot follow up neuro evaluation. dvt prophylaxis. Kimmy Suazo MD May 21, 2018 12:38
--- NOTE | 2018-05-21 13:06 | NUR ---
TRANSFER TO FLOOR: Patient transferred to 4E , per Dr. Mcginnis. Report given to LEODAN Esparza. Belongings and medications given to patient. Family and or S/O informed of transfer.
--- NOTE | 2018-05-21 13:08 | NUR ---
P.T Note: P.T evaluation completed and treatment initiated. Please refer to P.T evaluation for current functional status. Pt is alert, oriented x 4 , pleasant and cooperative. Pt presented generalized weakness more on the L side and decreased activity tolerance as evidence by intermittent rest periods needed during activities in standing and ambulation wich affect overall functional mobility independence and safety. Pt currently require SBA x 1 for bed mobilities, MIN/CGA x 1 for transfers and gait/ambulation activities. Skilled P.T service is warranted to improve strength , balance and endurance to increase her activity tolerance, mobility independence and safety. Recommend FWW and either SNF for short term rehab or P.T at [facility]. Pt is cleared for OOB activities with nursing and would require FWW in the room. Thank you for this referral.
[2018-05-21 16:00] VITALS: BP 142/67
[2018-05-21] MEDS ORDERED: Gadavist 7.5mMol/7.5ml vial IV PRN (16:00)
--- NOTE | 2018-05-21 16:46 | Internal Med Progress Note ---
Subjective Physician Name Liang Mcginnis Attending Physician Liang Mcginnis MD Current Medications Medications (Trade) Dose Ordered Sig/Bryan Route PRN Reason Start Time Stop Time Status Last Admin Dose Admin Acetaminophen (Tylenol) 650 mg Q4H PRN ORAL Mild Pain (Pain Scale 1-3) 05/21/18 12:31 06/20/18 12:30 Amlodipine Besylate (Norvasc) 2.5 mg DAILY ORAL 05/22/18 09:00 06/18/18 17:59 Aspirin (Ecotrin) 81 mg DAILY ORAL 05/22/18 09:00 06/18/18 14:29 Atorvastatin Calcium (Lipitor) 80 mg BEDTIME ORAL 05/21/18 21:00 06/18/18 20:59 Dextrose (Dextrose 50%) 25 ml Q30M PRN IV Hypoglycemia 05/21/18 12:45 06/18/18 14:14 Dextrose (Dextrose 50%) 50 ml Q30M PRN IV Hypoglycemia 05/21/18 12:45 06/18/18 14:14 Docusate Sodium (Colace) 100 mg EVERY 12 HOURS ORAL 05/21/18 21:00 06/18/18 20:59 Gadobutrol (Gadavist) 7.5 mmol NOW PRN IV Radiology Procedure 05/21/18 16:00 05/24/18 15:57 Heparin Sodium (Porcine) (Heparin 5000 units/ml) 5,000 units EVERY 12 HOURS SUBQ 05/21/18 21:00 06/19/18 08:59 Hydralazine HCl (Apresoline) 50 mg Q6H PRN ORAL SBP > 160 05/21/18 12:32 06/20/18 12:31 Magnesium Hydroxide (Mom) 30 ml HSPRN PRN ORAL Constipation 05/21/18 12:32 06/20/18 12:31 Metoprolol Tartrate (Lopressor) 50 mg Q12HR ORAL 05/21/18 21:00 06/18/18 20:59 Nitroglycerin (Ntg) 0.4 mg Q5M X 3 DOSES PRN SL Prn Chest Pain 05/21/18 12:30 06/18/18 14:14 Ondansetron HCl (Zofran) 4 mg Q6H PRN IVP Nausea & Vomiting 05/21/18 12:32 06/20/18 12:31 Polyethylene Glycol (Miralax) 17 gm HSPRN PRN ORAL Constipation 05/21/18 12:33 06/20/18 12:32 Allergies: Coded Allergies: NO KNOWN ALLERGIES (Verified Allergy, Unknown, 05/19/18) Subjective awake, alert, responsive, NAD, Feeling "Okay", lessen Left side weakness Objective Last Vital Signs Date Time Temp Pulse Resp B/P (MAP) Pulse Ox O2 Delivery O2 Flow Rate FiO2 05/21/18 16:00 99.1 64 19 142/67 (92) 99 05/21/18 09:00 Room Air Laboratory Tests Test 05/21/18 06:20 05/21/18 09:45 White Blood Count 7.3 K/UL (4.8-10.8) Red Blood Count 5.51 M/UL (4.20-5.40) H Hemoglobin 14.6 G/DL (12.0-16.0) Hematocrit 45.3 % (37.0-47.0) Mean Corpuscular Volume 82 FL (80-99) Mean Corpuscular Hemoglobin 26.5 PG (27.0-31.0) L Mean Corpuscular Hemoglobin Concent 32.2 G/DL (32.0-36.0) Red Cell Distribution Width 12.9 % (11.6-14.8) Platelet Count 223 K/UL (150-450) Mean Platelet Volume 6.3 FL (6.5-10.1) L Neutrophils (%) (Auto) 55.0 % (45.0-75.0) Lymphocytes (%) (Auto) 33.2 % (20.0-45.0) Monocytes (%) (Auto) 8.2 % (1.0-10.0) Eosinophils (%) (Auto) 2.6 % (0.0-3.0) Basophils (%) (Auto) 1.0 % (0.0-2.0) Sodium Level 141 MMOL/L (136-145) Potassium Level 4.4 MMOL/L (3.5-5.1) Chloride Level 108 MMOL/L (98-107) H Carbon Dioxide Level 24 MMOL/L (21-32) Anion Gap 9 mmol/L (5-15) Blood Urea Nitrogen 17 mg/dL (7-18) Creatinine 1.0 MG/DL (0.55-1.30) Estimat Glomerular Filtration Rate > 60 mL/min (>60) Glucose Level 126 MG/DL (74-106) H Calcium Level 8.6 MG/DL (8.5-10.1) Phosphorus Level 3.7 MG/DL (2.5-4.9) Magnesium Level 2.2 MG/DL (1.8-2.4) Total Bilirubin 0.4 MG/DL (0.2-1.0) Aspartate Amino Transf (AST/SGOT) 16 U/L (15-37) Alanine Aminotransferase (ALT/SGPT) 23 U/L (12-78) Alkaline Phosphatase 75 U/L (46-116) C-Reactive Protein, Quantitative 0.7 mg/dL (0.00-0.90) Total Protein 6.9 G/DL (6.4-8.2) Albumin 3.2 G/DL (3.4-5.0) L Globulin 3.7 g/dL Albumin/Globulin Ratio 0.9 (1.0-2.7) L Erythrocyte Sedimentation Rate 8 MM/HR (0-30) Intake and Output 05/20/18 05/21/18 18:59 06:59 Intake Total 300 ml 300 ml Balance 300 ml 300 ml Intake Oral 300 ml 300 ml # Voids 2 2 Objective GENERAL: awake, responsive, and in no acute. HEAD AND NECK: Pupils are reactive to light. Extraocular movements intact. Neck was supple. No JVD. LUNGS: Good air entry. No wheezing or rales. HEART: Reveals S1 and S2. Regular rhythm. No Murmur or gallops. ABDOMEN: Soft, nondistended, and nontender. Positive bowel sounds. EXTREMITIES: No cyanosis, clubbing, or edema. NEUROLOGIC: AGENCY APPOINTMENTS SUPERVISOR II through XII grossly intact. Motor is 5/5 in Right side extremities. eft side is 4/5 on the upper as well as lower extremity. Assessment/Plan Assessment/Plan ASSESSMENT: 1. Left-sided weakness, due acute right basal ganglia lacunar infarct. 2. Mild elevation of troponin with abnormal EKG, possible acute coronary syndrome. 3. Chronic smoker. PLAN: DC monitor transfer to medical unit. F/U echocardiogram, Dr. Cesar Ramirez from Neurology and Dr. Wang De León from Cardiology. Code status, Full Code. DVT prophylaxis with heparin subcutaneous. PT Mobility DC Home in AM. MRI of Brain: Positive for acute right basal ganglia lacunar infarct Negative for acute intracranial bleed, mass effect, or contrast enhancing lesion Age-related volume loss, chronic microvascular ischemic changes, and old right basal ganglia lacunar infarcts also incidentally noted.. Claudia Bob Payam MD May 21, 2018 16:46
--- NOTE | 2018-05-21 19:32 | NUR ---
HAND-OFF: Report given to Elaina ALCOCER.
--- NOTE | 2018-05-21 19:53 | NUR ---
NURSE NOTES: Patient in bed, awake, alert, verbally responsive. IVs in place. No complaints of pain at this time, no s/s distress noted. Bed in lowest position, call light within reach. Will continue to monitor.
[2018-05-21 20:32] VITALS: BP 153/81
[2018-05-21] MEDS ORDERED: Atorvastatin 80mg tab ORAL SCH (21:00)
[2018-05-22 00:30] VITALS: BP_SYST 116; BP_SYST 159; BP_DIAS 58; BP_DIAS 65
[2018-05-22 00:32] VITALS: BP 116/65
[2018-05-22 03:54] VITALS: BP 123/74
--- NOTE | 2018-05-22 07:00 | NUR ---
NURSE NOTES: PATIENT AWAKE, NO DISTRESS, V/S STABLE.
--- NOTE | 2018-05-22 07:39 | NUR ---
HAND-OFF: Report given to BREANNE MURPHY LVN.
[2018-05-22 08:00] VITALS: BP 120/66
[2018-05-22] MEDS ORDERED: Aspirin EC 81mg tab ORAL SCH (09:00)
[2018-05-22] MEDS: Docusate 100mg cap ORAL SCH (09:06)
[2018-05-22] MEDS: Metoprolol Tartrate 50mg tab ORAL SCH (09:10)
[2018-05-22] MEDS: Heparin 5000 units/ml inj SUBQ SCH (09:25)
--- NOTE | 2018-05-22 10:41 | Pulmonology Progress Note ---
Assessment/Plan Problems: (1) Acute encephalopathy (2) CVA (cerebral vascular accident) (3) Left arm weakness Assessment/Plan pt/ot] monitor BP MRI reviewed Echo reviewed according to PT, pt needs skilled pt dc planning ordered. Subjective ROS Limited/Unobtainable: No Constitutional: Reports: no symptoms HEENT: Repors: no symptoms Respiratory: Reports: no symptoms Allergies: Coded Allergies: NO KNOWN ALLERGIES (Verified Allergy, Unknown, 05/19/18) Objective Last 24 Hour Vital Signs Date Time Temp Pulse Resp B/P (MAP) Pulse Ox O2 Delivery O2 Flow Rate FiO2 05/22/18 09:12 60 121/69 05/22/18 09:10 60 121/69 05/22/18 09:00 Room Air 05/22/18 03:54 98.3 56 18 123/74 (90) 98 05/22/18 00:32 98.3 58 18 116/65 (82) 100 05/21/18 22:47 Room Air 05/21/18 20:45 71 153/81 05/21/18 20:32 98.3 71 18 153/81 (105) 95 05/21/18 16:00 99.1 64 19 142/67 (92) 99 05/21/18 12:00 98.2 65 20 127/71 (89) 98 Intake and Output 05/21/18 05/22/18 19:00 07:00 Intake Total 720 ml 120 ml Balance 720 ml 120 ml Intake Oral 720 ml 120 ml # Voids 2 General Appearance: WD/WN HEENT: normocephalic, atraumatic Respiratory/Chest: chest wall non-tender, lungs clear Breasts: no masses Cardiovascular: normal peripheral pulses Genitourinary: normal external genitalia Extremities: no clubbing Skin: no rash Current Medications Medications (Trade) Dose Ordered Sig/Bryan Route PRN Reason Start Time Stop Time Status Last Admin Dose Admin Acetaminophen (Tylenol) 650 mg Q4H PRN ORAL Mild Pain (Pain Scale 1-3) 05/21/18 12:31 06/20/18 12:30 Amlodipine Besylate (Norvasc) 2.5 mg DAILY ORAL 05/22/18 09:00 06/18/18 17:59 05/22/18 09:12 Aspirin (Ecotrin) 81 mg DAILY ORAL 05/22/18 09:00 06/18/18 14:29 05/22/18 09:07 Atorvastatin Calcium (Lipitor) 80 mg BEDTIME ORAL 05/21/18 21:00 06/18/18 20:59 05/21/18 20:45 Dextrose (Dextrose 50%) 25 ml Q30M PRN IV Hypoglycemia 05/21/18 12:45 06/18/18 14:14 Dextrose (Dextrose 50%) 50 ml Q30M PRN IV Hypoglycemia 05/21/18 12:45 06/18/18 14:14 Docusate Sodium (Colace) 100 mg EVERY 12 HOURS ORAL 05/21/18 21:00 06/18/18 20:59 05/22/18 09:06 Gadobutrol (Gadavist) 7.5 mmol NOW PRN IV Radiology Procedure 05/21/18 16:00 05/24/18 15:57 Heparin Sodium (Porcine) (Heparin 5000 units/ml) 5,000 units EVERY 12 HOURS SUBQ 05/21/18 21:00 06/19/18 08:59 05/22/18 09:25 Hydralazine HCl (Apresoline) 50 mg Q6H PRN ORAL SBP > 160 05/21/18 12:32 06/20/18 12:31 Magnesium Hydroxide (Mom) 30 ml HSPRN PRN ORAL Constipation 05/21/18 12:32 06/20/18 12:31 Metoprolol Tartrate (Lopressor) 50 mg Q12HR ORAL 05/21/18 21:00 06/18/18 20:59 05/22/18 09:10 Nitroglycerin (Ntg) 0.4 mg Q5M X 3 DOSES PRN SL Prn Chest Pain 05/21/18 12:30 06/18/18 14:14 Ondansetron HCl (Zofran) 4 mg Q6H PRN IVP Nausea & Vomiting 05/21/18 12:32 06/20/18 12:31 Polyethylene Glycol (Miralax) 17 gm HSPRN PRN ORAL Constipation 05/21/18 12:33 06/20/18 12:32 Kimmy Suazo MD May 22, 2018 10:41
[2018-05-22] MEDS ORDERED: METOPROLOL TART50 MG ORAL (10:43)
[2018-05-22] MEDS ORDERED: LIPITOR80 MG ORAL (10:43)
[2018-05-22] MEDS ORDERED: NORVASC2.5 MG ORAL (10:43)
[2018-05-22] MEDS ORDERED: ASPIRIN EC81 MG ORAL (10:43)
--- NOTE | 2018-05-22 10:44 | NUR ---
RECEIVED PATIENT I BED ALERT AWAKE.. NO RESPIRATORY DENIES NO CHEST PAIN OR DISCOMFORT.. UP WITH PHYSICAL THERAPY AMBULATED AROUND HALLWAY AND STAIRS , NEEDS STAND BY ASSIST INFORMED TO USE CALL LIGHT WHEN GETTING IN AND OUT OF THE BED.. NO ACUTE DISTRESS.. AWAITING TO BE DISCHARGE TO HOME DAUGHTER CALLED REGARDING STATUS..INFORMED TO FOLLOW UP WITH PRIMARY DOCTOR.. REGARDING STATUS NOTED.. CALL LIGHT IN REACH
[2018-05-22 12:00] VITALS: BP 147/80
--- NOTE | 2018-05-22 12:00 | NUR ---
PATIENT REFUSED TO GO [facility] [address] [place] [address] PHONE# [phone] FAX# [phone] CELL# RESPECTIVE CAME TO THE HOSPITAL AND INTERVIEW PATIENT BUT, REHAB CARE PER PATIENT NOTED Addendum: 05/22/18 at 1341 by BREANNE MURPHY LVN YA ANDERSON LVN DIRECTOR OF BUSINESS [facility]
--- NOTE | 2018-05-22 13:25 | NUR ---
CALLED Lucy MERCADO REGARDING PRESCRIPTIONS A AWAITING PACS ADMINISTRATOR BACK NEED NEW PRESCRIPTIONS ORDER
--- NOTE | 2018-05-22 14:30 | NUR ---
INFORMED Ambar CRAIG OF PATIENT PRESCRIPTIONS NEED TO BE FILLED PATIENT WILL CALL Ambar CRAIG REGARDING PRESCRIPTIONS PATIENT IS AWARE AND M.D. WELL TO NOTIFIED
--- NOTE | 2018-05-22 14:32 | NUR ---
ESCORTED OUT BY COMPENSATION PROGRAMS MANAGER AMBULATED WITH NO ASSIST. GAIT STEADY REMOVED ALL X2 HEP LOCK AND DRESSED.. PATIENT WAS VERY HAPPY TO LEAVE HOSPITAL NOTED.. NO ACUTE DISTRESS
--- NOTE | 2018-05-22 15:06 | Cardiology Report ---
APPROVED REPORT EXAM: Two-dimensional and M-mode echocardiogram with Doppler and color Doppler. INDICATION CVA/TIA M-Mode DIMENSIONS IVSd1.0 (0.7-1.1cm)Left Atrium (MM)2.0 (1.6-4.0cm) LVDd4.5 (3.5-5.6cm)Aortic Root3.5 (2.0-3.7cm) PWd1.1 (0.7-1.1cm)Aortic Cusp Exc.1.6 (1.5-2.0cm) IVSs1.2 cm LVDs2.8 (2.5-4.0cm) PWs1.4 cm Normal left ventricular chamber size, systolic function and wall motion . Left ventricular ejection fraction estimated to be 65-70%. Mild left ventricular hypertrophy by 2-D. Small pericardial effusion . All other cardiac chamber sizes are within normal limits. Aortic valve calcification with normal cusp excursion . Mildly thickened mitral valve leaflets with normal excursion. Mild mitral annulus and aortic root calcification. Pulmonic valve not well visualized. IVC at normal size with physiologic collapse A color flow and spectral Doppler study was performed and revealed: No aortic insufficiency . Mitral diastolic velocities suggest reduced left ventricular relaxation c/w mild LV diastolic dysfunction (Grade I ) Trace mitral regurgitation. Mild tricuspid regurgitation. Tricuspid systolic velocities suggests peak right ventricular systolic pressure of 23mmHg.
[2018-05-22] MEDS ORDERED: METOPROLOL TART25 MG ORAL (18:20)
--- NOTE | 2018-05-22 18:22 | Internal Med Progress Note ---
Subjective Physician Name Liang Mcginnis Attending Physician Liang Mcginnis MD Allergies: Coded Allergies: NO KNOWN ALLERGIES (Verified Allergy, Unknown, 05/19/18) Subjective awake, alert, responsive, NAD, Feeling "good" Objective Last Vital Signs Date Time Temp Pulse Resp B/P (MAP) Pulse Ox O2 Delivery O2 Flow Rate FiO2 05/22/18 12:00 98.0 60 18 147/80 (102) 95 05/22/18 09:00 Room Air Intake and Output 05/21/18 05/22/18 18:59 06:59 Intake Total 720 ml 120 ml Balance 720 ml 120 ml Intake Oral 720 ml 120 ml # Voids 2 Objective GENERAL: awake, responsive, and in no acute. HEAD AND NECK: Pupils are reactive to light. Extraocular movements intact. Neck was supple. No JVD. LUNGS: Good air entry. No wheezing or rales. HEART: Reveals S1 and S2. Regular rhythm. No Murmur or gallops. ABDOMEN: Soft, nondistended, and nontender. Positive bowel sounds. EXTREMITIES: No cyanosis, clubbing, or edema. NEUROLOGIC: IT APPLICATION ARCHITECT II through XII grossly intact. Motor is 5/5 in Right side extremities. eft side is 4/5 on the upper as well as lower extremity. Assessment/Plan Assessment/Plan ASSESSMENT: 1. Left-sided weakness, due acute right basal ganglia lacunar infarct. 2. Mild elevation of troponin with abnormal EKG, possible acute coronary syndrome. 3. Chronic smoker. PLAN: medical unit. Dr. Cesar Ramirez from Neurology and Dr. Wang De León from Cardiology. Code status, Full Code. DVT prophylaxis with heparin subcutaneous. PT Mobility DC Home today\\Call [email or web address] at [phone]. MRI of Brain: Positive for acute right basal ganglia lacunar infarct Negative for acute intracranial bleed, mass effect, or contrast enhancing lesion Age-related volume loss, chronic microvascular ischemic changes, and old right basal ganglia lacunar infarcts also incidentally noted.. Liang Mcginnis M.D. Liang Mcginnis MD May 22, 2018 18:22
--- NOTE | 2018-05-22 18:25 | Cardiology Report ---
APPROVED REPORT EKG Measurement Heart [id number] Sinus bradycardia Otherwise normal ECG
--- NOTE | 2018-05-22 23:52 | Cardiology Progress Note ---
Assessment/Plan Assessment/Plan The patient is seen and examined, full consult note will be dictated shortly. Objective Last 24 Hour Vital Signs Date Time Temp Pulse Resp B/P (MAP) Pulse Ox O2 Delivery O2 Flow Rate FiO2 05/22/18 12:00 98.0 60 18 147/80 (102) 95 05/22/18 09:12 60 121/69 05/22/18 09:10 60 121/69 05/22/18 09:00 Room Air 05/22/18 08:00 98.1 65 22 120/66 (84) 96 05/22/18 03:54 98.3 56 18 123/74 (90) 98 05/22/18 00:32 98.3 58 18 116/65 (82) 100 Intake and Output 05/21/18 05/22/18 19:00 07:00 Intake Total 720 ml 120 ml Balance 720 ml 120 ml Intake Oral 720 ml 120 ml # Voids 2 Wang De León MD May 22, 2018 23:52
--- NOTE | 2018-05-23 23:30 | Diagnostic Imaging Report ---
APPROVED REPORT CPT Code: 30403 Present Symptoms Comments: RIGHT LEG SWELLING. RIGHT LEG: Venous imaging reveals a patent deep venous system. There is no evidence of thrombus within the femoral, popliteal or tibial segments. The greater saphenous vein is also within normal limits. Doppler indicates normal spontaneous flow within these segments.
--- NOTE | 2018-05-24 12:58 | Discharge Summary ---
Discharge Summary Discharge Summary _ DATE OF ADMISSION: 05/19/2018 DATE OF DISCHARGE: 05/10/1618 DISCHARGED BY: Dr. Mcginnis REASON FOR ADMISSION: 67 years old female, initially presented to [place] emergency department for evaluation of left upper and left lower extremity weakness, that started few hours before. Patient was trying to get to the bathroom and fell. Patient required a chair to get her balance to get there. Patient reported to be on the floor for 5 hours. Subsequently ambulance was called and patient was transferred to [place] emergency department for further evaluation and management. Patient denied fever and chills. Patient denied chest pain or shortness of breath. Patient denied headache. Workup to rule out acute CVA initiated in ED. CT of the brain without contrast revealed no acute intracranial pathology. Areas of white matter ischemic disease were suggested. CT angiogram of the brain and the neck demonstrated mild white matter ischemic changes disease ,m but no acute intracranial pathology. Mild aortic atherosclerosis. Troponin level was borderline elevated -0.04. ECG revealed sinus rhythm, no acute ischemic changes Chest x-ray revealed no acute cardiopulmonary pathology. X-ray of the right knee revealed no fracture or dislocation. Patient subsequently was transferred to [facility] for further management. CONSULTANTS: protective signal repairer helper Dr. De León neurologist Dr. Ramirez pulmonary Dr. Suazo [facility] COURSE: Patient admitted to monitored floor. Trade Manager , protective signal repairer helper and neurologist followed. MRI of the brain revealed acute right basal ganglia lacunar infarct, but was negative for acute intracranial bleeding, mass-effect or contrast-enhancing lesion. Old right basal ganglia lacunar infarct was also incidentally noted. Patient was started on antiplatelet therapy with aspirin and statin. Lipid panel revealed stable LDL and total cholesterol , but showed elevated triglycerides. TSH within normal limits. Hemoglobin A1c borderline 6.5. Patient was educated on low-fat, low-cholesterol , cardiac, no concentrated sweets diet. Patient was working with physical and occupational therapists. Fall precautions maintained. Per physical therapist recommendation , patient will benefit from the skilled physical therapy services. Bedside swallow evaluation revealed mild dysphagia. Diet provided as per speech therapist recommendation using aspiration precaution and supervision with meals. Speech therapist recommended video swallow evaluation , which can be done as outpatient. Venous duplex bilateral lower extremity revealed no evidence of acute DVT. Supplemental oxygen provided as needed to keep pulse oximetry above 92%. Pulmonary toilet was on board as needed. Pulse oximetry was stable on room air. Patient was counseled on smoking cessation. Patient declined nicotine patch at this time. Echocardiogram revealed preserved ejection fraction of 65-70% with mild left ventricular hypertrophy. No evidence of wall motion abnormalities. Right ventricular systolic pressure of 23. Repeated 2 troponin were negative. EKG and telemetry showed no acute ischemic changes. Per protective signal repairer helper borderline elevation of troponin was likely due to acute CVA. Blood pressure was managed with calcium channel yahir and beta-yahir. In addition hydralazine was on board as needed for breakthrough elevated blood pressure. DVT prophylaxis provided. Bowel regimen instituted. Pain management was addressed as needed. Supportive care provided. Transfer was arranged to residential facility for continuation of care and further rehabilitation. Patient declined transfer to residential facility. Patient was subsequently discharged home. FINAL DIAGNOSES: Acute right basal ganglia lacunar infarct Acute encephalopathy Left arm weakness Hypertension with accelerated hypertension initially -improved Elevated troponin likely due to acute CVA Current smoker DISCHARGE MEDICATIONS: See Medication Reconciliation list. DISCHARGE INSTRUCTIONS: Patient was discharged home. Follow up with primary care provider in one week. Return to ED instructions discussed with patient in detail I have been assigned to dictate discharge summary for this account. I was not involved in the patient's management. Berenice Madsen NP May 24, 2018 12:58
== END 2018-05-22 14:23 | disposition home or self-care (01) | DRG 65 ==
LOC: 2E 11:25 → 4E 05-21 12:20
DX: I63.81 Other cerebral infarction due to occlusion or stenosis of small artery (principal); G81.94 Hemiplegia, unspecified affecting left nondominant side; G93.40 Encephalopathy, unspecified; N39.0 Urinary tract infection, site not specified; F17.200 Nicotine dependence, unspecified, uncomplicated; I10 Essential (primary) hypertension; M79.604 Pain in right leg
CPT/HCPCS: 36415; 70553; 80053; 80061; 81003; 82465; 83036; 83735; 84100; 84443; 84484; 85025; 85610; 85651; 85730; 86140; 93005; 93306; 93971; A9585